=== PATIENT | female | born 1965 | race Caucasian/White ===

== ENCOUNTER 2024-12-10 02:10 | Emergency (ER) | payer MEDICAID, SELFPAY ==
[2024-12-10 02:10] VITALS: BMI 22.6
[2024-12-10 02:39] VITALS: BP 137/75; PULSE 96; RESP 18; TEMP 36.9; O2SAT 99
--- NOTE | 2024-12-10 02:44 | XR_ITS ---
Examination: Wrist, right 3 views Technique: Wrist AP, oblique, lateral 3 views Date and time of exam: December 10, 2024 0249 hrs. Indications: Injury to the wrist today, wrist pain Findings: Old deformity of the radial styloid No acute fracture No dislocation Impression: No acute fracture
[2024-12-10] MEDS: IBUPROFEN TAB 600 MG TABLET PO (02:53)
--- NOTE | 2024-12-10 03:01 | PD.EDHAND ---
Upper Extremity Injury RME/HPI General Chief Complaint: Hand/Wrist Problems Stated Complaint: R WRIST PAIN Time Seen by Provider: 12/10/24 02:13 Arrival date/time: 12/10/24 02:10 59 year old female present to emergency room with c/o of right wrist injury via GLF today. LOCATION: wrist SEVERITY: Symptoms are described as being severe with limitations on activities of daily living QUALITY: Symptoms are described as being dull or achy CONTEXT: GLF on wrist DURATION/TIMING: The symptoms started approximately 1 day ago and have been constant this then. ASSOCIATED SYMPTOMS: The patient is unable to identify any other associated symptoms. MODIFYING FACTORS: The patient is unable to identify any alleviating or aggravating symptoms. PERTINENT ROS: no fevers, no headache, no neck or chest pain, no unexplained nausea or vomiting, no focal neurological deficits REVIEW OF SYSTEMS: See History of Present Illness - with the exception of those mentioned in the history of present illness, all other systems reviewed and reported as negative GENERAL: In general the patient is awake, interactive, in an emergency department gurney. HEAD/EYES/EARS/NOSE/THROAT: normo-cephalic, atraumatic, mucus membranes are moist, anicteric, palpebral conjunctiva is pink, trachea is midline. NEUROLOGICAL: cranio-facial features are symmetric, moves all four extremities equally without obvious limitations or weakness. EXTREMITY: right proximal wrist tenderness, decrease range of motion no tenderness to palpation over the long bones or large joints of the bilateral lower extremities, no joint swelling, no joint erythema, no unilateral leg swelling and no peripheral edema. SKIN: warm, dry, well-perfused, no jaundice, no rash, no telangiectasias or petechia. PSYCH: calm, cooperative, no evidence of psychosis or agitation Related Data Home Medications ?Medication ?Instructions ?Recorded ?Confirmed amlodipine 10 mg tablet 10 mg PO QDAY 01/31/24 01/31/24 ergocalciferol (vitamin D2) 1,250 1,250 mcg PO QWEEK 01/31/24 01/31/24 mcg (50,000 unit) capsule hydroxyzine HCl 50 mg tablet 50 mg PO HS PRN Insomnia 01/31/24 01/31/24 Held on 01/31/24. Instructions: Resume on 02/01/24. lisinopril 40 mg tablet 40 mg PO QDAY 01/31/24 01/31/24 vibegron 75 mg tablet (Gemtesa) 75 mg PO QDAY 01/31/24 01/31/24 Allergies Allergy/AdvReac Type Severity Reaction Status Date / Time No Known Allergies Allergy Verified 12/10/24 02:12 Course Course Course Narrative: Patient with presentation consistent with wrist sprain/pain.? Above radiographs orders without evidence of acute fracture wet read, radiologist will overead in the morning. . Provided colles splint w/ elastic bandage. Symptomatic treatment was discussed.. Patient may also use ibuprofen as needed for pain. Follow up with primary physician or sports medicine clinic if continued pain. Return to ED if pain uncontrolled, neurovascular change, or other concerns. Plan:? ? A splint was fitted/applied and adjusted to the Pt and secured w/ ANNA wrap. Advised Pt to wrap affected area w/ elastic bandage firmly but not tightly until resolution of swelling and to remove if numbness or tingling presents.? Advised Pt on cold application to affected area for thirty min q3-4hr for one to two days and then warm application to affected area for thirty min tid/qid until resolution of Sx.? Advised Pt to elevate hand when lying. Instructed Pt to take OTC acetaminophen or ibuprofen prn as directed. Advised Pt to perform ROM exercises. Instructed Pt to f/up w/ PCP or ETC should Sx worsen or not improve.? Pt verbally expressed understanding and all questions were addressed to Pt's satisfaction. Quality Measures none Orders Category Date Time Status Splint / Immobilizer STAT Care 12/10/24 03:13 Active XR wrist comp RT min 3V Stat Exams 12/10/24 02:44 Taken Ibuprofen Tab [Motrin Tab] Med 12/10/24 02:44 Discontinued 600 mg PO X1 ONE Vital Signs Vital signs: Vital Signs Temperature 98.5 F 12/10/24 02:39 Pulse Rate 96 12/10/24 02:39 Respiratory Rate 18 12/10/24 02:39 Blood Pressure 137/75 H 12/10/24 02:39 Pulse Oximetry (%) 99 12/10/24 02:39 Oxygen Delivery Method Room Air 12/10/24 02:39 Extremity Injury Patient data External records reviewed:: [facility] previous records Clinical information provided by:: patient Social determinants that could affect healthcare access:: none Patient has the following chronic illnesses:: as stated in chart How is presenting disease/condition affected by chronic disease/condition?: no chronic disease Evaluation data The following diagnostics were reviewed and interpreted by me:: radiology exam(s) Lab and/or radiology exams considered but not ordered:: n/a Interpretation Summary: xray: no acute fx , wet read, radiologist will overead in the morning Medications / Prescriptions Medications or Prescriptions considered but not ordered:: n/a Medication administrations:: Medication Administration History Discontinued Medications Ibuprofen (Ibuprofen Tab 600 Mg Tablet) 600 mg PO X1 ONE Stop: 12/10/24 02:45 Last Admin: 12/10/24 02:53 Dose: 600 mg Documented By: CVL as stated above Consultations Consultation(s) initiated? (list below): No Diagnosis Upper Extremity Injury Differential Diagnosis: sprain and strain of wrist and fracture of wrist Most likely diagnosis given after review of the tests above:: wrist sprain Admission Indicated Admission indicated?: not indicated Admission Request Was there a request for admission?: No Disposition Plan Disposition Plan: Discharge Discharge Attestation Discharge Attestation: The patient and all family members were given an opportunity to ask questions and understood the discharge instructions. Discharge instructions specifically effects, indications for sooner follow up or return to the emergency department, and the expected course of current diagnosis. Patient condition: Stable Discharge Plan Plan Patient Disposition: HOME (Self Care) Health Concerns: Follow with PMD as directed Take tylenol or motrin as need Return to ED if sx worsen Prescriptions/Referrals Prescriptions/Med Rec: No Action hydroxyzine HCl 50 mg tablet 50 mg PO HS PRN (Reason: Insomnia) Patient Comments: TAKE ONE TABLET BY MOUTH AT BEDTIME NEEDED amlodipine 10 mg tablet 10 mg PO QDAY Patient Comments: TAKE ONE TABLET BY MOUTH EVERY DAY FOR BLOOD PRESSURE ergocalciferol (vitamin D2) 1,250 mcg (50,000 unit) capsule 1,250 mcg PO QWEEK Patient Comments: TAKE ONE CAPSULE BY MOUTH EVERY WEEK VITAMIN lisinopril 40 mg tablet 40 mg PO QDAY Patient Comments: TAKE ONE TABLET BY MOUTH EVERY DAY FOR BLOOD PRESSURE Gemtesa 75 mg tablet 75 mg PO QDAY Patient Comments: TAKE ONE TABLET BY MOUTH EVERY DAY FOR OVERACTIVE BLADDER Problem List Clinical Impression: Right wrist sprain Patient/Caregiver Discharge Instructions Education Materials: ED Wrist Sprain Print Language: Luxembourgish Stand Alone Forms: [facility] Award Info., Patient Portal Info Letter
[2024-12-10 03:15] VITALS: RESP 18
== END 2024-12-10 03:15 | disposition home or self-care (01) ==
LOC: SERX 03:14
PROVIDERS: Emergency Provider Emergency Medicine; PCP Nurse Practitioner Family
DX: S63.501A Unspecified sprain of right wrist, initial encounter (principal); W19.XXXA Unspecified fall, initial encounter
CPT/HCPCS: 73110; 99283; A9270

== ENCOUNTER 2025-02-21 19:37 | Emergency (ER) | payer MEDICAID, SELFPAY ==
[2025-02-21 19:38] VITALS: BMI 22.6
[2025-02-21 19:55] VITALS: BP 122/71; PULSE 111; RESP 20; TEMP 37.5; O2SAT 95
--- NOTE | 2025-02-21 20:00 | PD.EDSKIN ---
ED Skin Abcess FB-RME/HPI General Chief complaint: Skin/Abscess/Foreign Body Stated complaint: RASH IN PRIVATE AREA Time Seen by Provider: 02/21/25 19:40 Arrival date/time: 02/21/25 19:37 This is a case of 60-year-old female who came in in the emergency room due to vaginal pain redness and surrounding for 1 week worsening of the symptoms this patient decided to start consult here in the emergency Related Data Home Medications ?Medication ?Instructions ?Recorded ?Confirmed amlodipine 10 mg tablet 10 mg PO QDAY 01/31/24 01/31/24 ergocalciferol (vitamin D2) 1,250 1,250 mcg PO QWEEK 01/31/24 01/31/24 mcg (50,000 unit) capsule hydroxyzine HCl 50 mg tablet 50 mg PO HS PRN Insomnia 01/31/24 01/31/24 Held on 01/31/24. Instructions: Resume on 02/01/24. lisinopril 40 mg tablet 40 mg PO QDAY 01/31/24 01/31/24 vibegron 75 mg tablet (Gemtesa) 75 mg PO QDAY 01/31/24 01/31/24 Allergies Allergy/AdvReac Type Severity Reaction Status Date / Time No Known Allergies Allergy Verified 12/10/24 02:12 Course Orders Category Date Time Status CT Screening NOW Care 02/21/25 20:[address] abdomen pelvis w con Stat Exams 02/21/25 19:59 Ordered CBC Stat Lab 02/21/25 19:59 Ordered CMP [Comprehensive Metabolic Panel] Stat Lab 02/21/25 19:59 Ordered HCG,Qualitative Serum Stat Lab 02/21/25 19:59 Ordered Vital Signs Vital signs: Vital Signs Temperature 99.5 F 02/21/25 19:55 Pulse Rate 111 H 02/21/25 19:55 Respiratory Rate 20 02/21/25 19:55 Blood Pressure 122/71 02/21/25 19:55 Pulse Oximetry (%) 95 02/21/25 19:55 Oxygen Delivery Method Room Air 02/21/25 19:55 Discharge Plan Prescriptions/Referrals Prescriptions/Med Rec: No Action hydroxyzine HCl 50 mg tablet 50 mg PO HS PRN (Reason: Insomnia) Patient Comments: TAKE ONE TABLET BY MOUTH AT BEDTIME NEEDED amlodipine 10 mg tablet 10 mg PO QDAY Patient Comments: TAKE ONE TABLET BY MOUTH EVERY DAY FOR BLOOD PRESSURE ergocalciferol (vitamin D2) 1,250 mcg (50,000 unit) capsule 1,250 mcg PO QWEEK Patient Comments: TAKE ONE CAPSULE BY MOUTH EVERY WEEK VITAMIN lisinopril 40 mg tablet 40 mg PO QDAY Patient Comments: TAKE ONE TABLET BY MOUTH EVERY DAY FOR BLOOD PRESSURE Gemtesa 75 mg tablet 75 mg PO QDAY Patient Comments: TAKE ONE TABLET BY MOUTH EVERY DAY FOR OVERACTIVE BLADDER Patient/Caregiver Discharge Instructions Print Language: Mohawk
--- NOTE | 2025-02-21 20:01 | PD.EDRME ---
Rapid Medical Screening Exam RME Arrival date/time: 02/21/25 19:37 This is a case of a 60-year-old female who came in emergency room due to abdominal pain vaginal pain redness swelling and discharge suggestive of abscess on the vagina worsening of the symptoms this patient decided to start consult here in the emergency room Chief Complaint: Skin/Abscess/Foreign Body Time Seen by Provider: 02/21/25 19:40 Vital signs: Vital Signs Temperature 99.5 F 02/21/25 19:55 Pulse Rate 111 H 02/21/25 19:55 Respiratory Rate 20 02/21/25 19:55 Blood Pressure 122/71 02/21/25 19:55 Pulse Oximetry (%) 95 02/21/25 19:55 Oxygen Delivery Method Room Air 02/21/25 19:55
--- NOTE | 2025-02-21 20:24 | PD.EDFMALE ---
ED Female Urogenital RME/HPI General Chief complaint: Skin/Abscess/Foreign Body Stated complaint: RASH IN PRIVATE AREA Time Seen by Provider: 02/21/25 19:40 Arrival date/time: 02/21/25 19:37 RME / HPI RME / HPI Narrative: 02/21/25 19:37 This is a case of a 60-year-old female who came in emergency room due to abdominal pain vaginal pain redness swelling and discharge suggestive of abscess on the vagina worsening of the symptoms this patient decided to start consult here in the emergency room This section includes all my notes and documentations, including HPI, PE, and ED course. Jeffery Jensen MD HPI: 60 y/o female with a couple month history of worsening swelling and redness and pain of the entire external genitalia. Had vaginal squamous cell carcinoma about 8 years ago. Complete recovery with a month of chemotherapy and radiation. No surgery needed. Has been working with Dr. Khadijah Conner ([facility]) in [place] in the past couple of months. Biopsy showed lichen sclerosus according to the patient. Currently, patient can't even sit due to severe pain. And has trouble urinating. No fever or chills. No other complaints. ROS: All negative except as documented in HPI. Physical Exam: General: Alert and oriented. In obvious pain. Eyes: Conjunctivae and lids clear. ENT: No nasal congestion. Neck: Supple. Heart: RRR. Lungs: No respiratory distress. Good air movement. No rhonchi, wheezing, rales. Abdomen: Soft and nontender. Normal bowel sounds. No distension. No rebound or guarding. Skin: Warm and dry. Neuro: Alert and oriented X 3. Genitalia: Entire external genitalia is severely edematous and erythematous and tenderness. Clitoris is the size of a grape. I reviewed all diagnostic test results: My interpretation of the chest x-ray is infiltrates. My review of the Chest/Abdomen/Pelvis CT report is: Soft nodular opacities in the upper lung zones most consistent with pneumonia. Edema perianal extending into the perineum including labia, most consistent with cellulitis. Blood tests remarkable for WBC 12.2, CRP 19.3. UA showed positive leukocyte Estrace, 17 RBC, 99 WBC, and 1+ bacteria. At this point, diagnoses include: Inflammatory disease of vagina and vulva, Urinary retention, Cellulitis of female genitalia, UTI, and pneumonia. Treatment here included: Topical Emla cream, IV fluid, Toradol, morphine, Solu-Medrol, Rocephin, and vancomycin. 0026: I discussed the case with our WEBSITE PROGRAMMER, Dr. Giordano. About the presentation and exam and diagnostics and treatments here. And possible need of further care in the hospital. Recommended transfer to another facility with [facility] service. 0246: I discussed the case with Dr. Huertas ([facility]). About the presentation and exam and diagnostics and treatments here. And need of further care there. Accepted the patient. Jeffery Jensen MD Related Data Home Medications ?Medication ?Instructions ?Recorded ?Confirmed amlodipine 10 mg tablet 10 mg PO QDAY 01/31/24 01/31/24 ergocalciferol (vitamin D2) 1,250 1,250 mcg PO QWEEK 01/31/24 01/31/24 mcg (50,000 unit) capsule hydroxyzine HCl 50 mg tablet 50 mg PO HS PRN Insomnia 01/31/24 01/31/24 Held on 01/31/24. Instructions: Resume on 02/01/24. lisinopril 40 mg tablet 40 mg PO QDAY 01/31/24 01/31/24 vibegron 75 mg tablet (Gemtesa) 75 mg PO QDAY 01/31/24 01/31/24 Allergies Allergy/AdvReac Type Severity Reaction Status Date / Time No Known Allergies Allergy Verified 12/10/24 02:12 Review of Systems Review of Systems Systems Reviewed: All systems reviewed, normal except as documented Past Medical History Past Medical History CARDIAC: Positive Hypertension MUSCULOSKELETAL: Positive Rheumatoid Arthritis PSYCHO/SOCIAL: Positive Psychiatric Problems, Recreational Drug Use, Depression, Anxiety and Post Traumatic Stress Disorder (son 2013 from epilepsy) OTHER HISTORY: Positive Chemotherapy, Radiation Therapy and Cancer (squamous cell carcinoma of vagina) Family History FAMILY HISTORY: Positive Family Psychiatric Problems (schizophrenic, personality disorder, developmenal disorder, mental health), Family Cardiac Disorders (htn), Family Gastrointestinal Problems (colon cancer) and Family Cancer (colon cancer) Surgical History SURGICAL: Positive Tubal Ligation Social History SMOKING STATUS: Current some day smoker SECOND HAND EXPOSURE: Yes (mother) ED Exam Narrative Physical exam: Refer to HPI Course Course Course Narrative: CXR is ordered for determining the etiology of shortness of breath. Quality Measures none Orders Category Date Time Status Bladder Scan NEEDED Care 02/22/25 03:01 Active COVID-19 Screening Questionnaire NOW Care 02/22/25 02:[address] Screening NOW Care 02/21/25 20:28 Active Decision to Admit X1 Care 02/22/25 02:49 Active [place] to [place] Routine Care 02/21/25 20:26 Ordered Saline [Insert IV] NOW Care 02/21/25 20:[address] chest abdomen pelvis w Stat Exams 02/21/25 20:28 Completed XR chest 1V portable Stat Exams 02/21/25 20:28 Completed Bilirubin,Direct Stat Lab 02/21/25 20:33 Completed Blood Culture (Lab) Stat Lab 02/21/25 20:41 Received CBC Stat Lab 02/21/25 20:33 Completed CMP [Comprehensive Metabolic Panel] Stat Lab 02/21/25 20:33 Completed CRP [C-Reactive Protein] Stat Lab 02/21/25 20:33 Completed ESR [Sed Rate (ESR)] Stat Lab 02/21/25 20:33 Completed Lactate (Lactic Acid) Stat Lab 02/21/25 20:33 Completed Magnesium Stat Lab 02/21/25 20:33 Completed PT [Prothrombin Time with INR] Stat Lab 02/21/25 20:33 Completed PTT [Partial Thromboplastin Time] Stat Lab 02/21/25 20:33 Completed Procalcitonin Stat Lab 02/21/25 20:33 Completed UA, C/S IF [Urinalysis, C/S if Indicated] Stat Lab 02/21/25 23:45 Completed Urine Culture Stat Lab 02/21/25 23:45 Received Ketorolac Inj [Toradol Inj] Med 02/21/25 20:26 Discontinued 30 mg IVP X1 ONE Lidocaine/Prilocaine Cr 5Gm [Emla Cr] Med 02/21/25 20:35 Discontinued See Dose Instructions TOP X1 ONE Lidocaine/Prilocaine Cr 5Gm [Emla Cr] Med 02/21/25 20:35 Discontinued See Dose Instructions TOP X1 ONE Lidocaine/Prilocaine Cr 5Gm [Emla Cr] Med 02/21/25 20:36 Discontinued See Dose Instructions TOP X1 ONE Lidocaine/Prilocaine Cr 5Gm [Emla Cr] Med 02/21/25 20:36 Discontinued See Dose Instructions TOP X1 ONE MethylPREDNISolone.* [SoluMEDROL Inj] Med 02/21/25 20:26 Discontinued 125 mg IVP X1 ONE Morphine Inj Med 02/21/25 20:26 Discontinued 4 mg IVP X1 ONE Sodium Chloride 0.9% 1000 ml [Ns] 1,000 ml Med 02/21/25 20:26 Discontinued IV 999 mls/hr Vancomycin Inj 2,000 mg Med 02/21/25 21:34 Discontinued Sodium Chloride 0.9% 500 ml [Ns] 500 ml IV X1 cefTRIAXone/D5w 1gm IV premix [Rocephin/D5w 1gm IV Med 02/21/25 21:34 Discontinued premix] 1 gm in 50 ml IV X1 Vital Signs Vital signs: Vital Signs Temperature 99.5 F 02/21/25 19:55 Pulse Rate 111 H 02/21/25 19:55 Respiratory Rate 20 02/21/25 19:55 Blood Pressure 122/71 02/21/25 19:55 Pulse Oximetry (%) 95 02/21/25 19:55 Oxygen Delivery Method Room Air 02/21/25 19:55 Urogenital - Female MDM Narrative MDM Narrative:: Scribe Attestation: IEsepranza, am scribing for and in the presence of Dr. Jensen. Provider Notation: Although this document has been carefully reviewed, there may still be some phonetic and other typographical errors.? These errors are purely grammatical due to imperfections in the software program and should not be construed in any way to? compromise the substance of the patient's medical care during this visit. 60 y/o female with a couple month history of worsening swelling and redness and pain of the entire external genitalia. Had vaginal squamous cell carcinoma about 8 years ago. Complete recovery with a month of chemotherapy and radiation. No surgery needed. Has been working with Dr. Khadijah Conner ([facility]) in [place] in the past couple of months. Biopsy showed lichen sclerosus according to the patient. Currently, patient can't even sit due to severe pain. And has trouble urinating. No fever or chills. No other complaints. Patient data External records reviewed:: [facility] previous records (Reviewed prior ED records from 12/10/24. Patient was seen for Right wrist sprain.) Clinical information provided by:: patient Social determinants that could affect healthcare access:: substance use Patient has the following chronic illnesses:: Hypertension, Rheumatoid Arthritis, Recreational Drug Use, Depression, Anxiety, Post Traumatic Stress Disorder, Squamous cell carcinoma of the vagina How is presenting disease/condition affected by chronic disease/condition?: exacerbated by Evaluation data The following diagnostics were reviewed and interpreted by me:: lab results and radiology exam(s) Lab and/or radiology exams considered but not ordered:: None Interpretation Summary: I reviewed all diagnostic test results: My interpretation of the chest x-ray is infiltrates. My review of the Chest/Abdomen/Pelvis CT report is: Soft nodular opacities in the upper lung zones most consistent with pneumonia. Edema perianal extending into the perineum including labia, most consistent with cellulitis. Blood tests remarkable for WBC 12.2, CRP 19.3. UA showed positive leukocyte Estrace, 17 RBC, 99 WBC, and 1+ bacteria. Medications / Prescriptions Medications or Prescriptions considered but not ordered:: None Medication administrations:: Medication Administration History Discontinued Medications Sodium Chloride (Ns) 1,000 mls @ 999 mls/hr IV .Q1H1M ONE Stop: 02/21/25 21:26 Last Infusion: 02/21/25 22:45 Dose: Infused Documented By: Admin: 02/21/25 20:49 Dose: 999 mls/hr Documented By: ELVA Ceftriaxone Sodium/Dextrose (Rocephin/D5w 1gm Iv Premix) 1 gm in 50 mls @ 100 mls/hr IV X1 ONE Stop: 02/21/25 22:03 Last Infusion: 02/21/25 22:45 Dose: Infused Documented By: Admin: 02/21/25 21:46 Dose: 100 mls/hr Documented By: ELVA Vancomycin HCl 2,000 mg/ (Sodium Chloride) 500 mls @ 150 mls/hr IV X1 ONE Stop: 02/22/25 00:53 Last Infusion: 02/22/25 02:27 Dose: Infused Documented By: Admin: 02/21/25 22:53 Dose: 150 mls/hr Documented By: ELVA Ketorolac Tromethamine (Ketorolac Inj 30 Mg/Ml Vial) 30 mg IVP X1 ONE Stop: 02/21/25 20:27 Last Admin: 02/21/25 20:50 Dose: 30 mg Documented By: ELVA Lidocaine/Prilocaine (Lidocaine/Prilocaine Cr 5gm 5 Gm Tube) 0 gm TOP X1 ONE Stop: 02/21/25 20:36 Last Admin: 02/21/25 20:51 Dose: 5 gm Documented By: ELVA Lidocaine/Prilocaine (Lidocaine/Prilocaine Cr 5gm 5 Gm Tube) 0 gm TOP X1 ONE Stop: 02/21/25 20:36 Last Admin: 02/22/25 03:39 Dose: Not Given Documented By: ANUJ Non-Admin Reason: Change of Condition Lidocaine/Prilocaine (Lidocaine/Prilocaine Cr 5gm 5 Gm Tube) 0 gm TOP X1 ONE Stop: 02/21/25 20:37 Last Admin: 02/22/25 03:39 Dose: Not Given Documented By: ANUJ Non-Admin Reason: Change of Condition Lidocaine/Prilocaine (Lidocaine/Prilocaine Cr 5gm 5 Gm Tube) 0 gm TOP X1 ONE Stop: 02/21/25 20:37 Last Admin: 02/22/25 03:39 Dose: Not Given Documented By: AC Non-Admin Reason: Change of Condition Methylprednisolone Sodium Succinate (Methylprednisolone Sod Succ 62.5 Mg/Ml 2ml Vial) 125 mg IVP X1 ONE Stop: 02/21/25 20:27 Last Admin: 02/21/25 20:51 Dose: 125 mg Documented By: ELVA Morphine Sulfate (Morphine Sulf Inj 10 Mg/Ml Vial) 4 mg IVP X1 ONE Stop: 02/21/25 20:27 Last Admin: 02/21/25 20:51 Dose: 4 mg Documented By: ELVA Treatment here included: Topical Emla cream, IV fluid, Toradol, morphine, Solu-Medrol, Rocephin, and vancomycin. Consultations Consultation(s) initiated? (list below): Yes Consultation #1 (Physician, Specialty, Details): 0026: I discussed the case with our WEBSITE PROGRAMMER, Dr. Giordano. About the presentation and exam and diagnostics and treatments here. And possible need of further care in the hospital. Recommended transfer to another facility with [facility] Oncology service. Time: 00:26 Consultation #3 (Physician, Specialty, Details): 0246: I discussed the case with Dr. Huertas ([facility]). About the presentation and exam and diagnostics and treatments here. And need of further care there. Accepted the patient. Time: 02:46 Diagnosis Urogenital Female Differential Diagnosis: urinary tract infection, bacterial vaginosis, trichomoniasis, cervicitis, ovarian cyst, vaginitis, ruptured ovarian cyst, cyst of Bartholin's gland, cystitis, dysmenorrhea and other (Vaginal cancer, cellulitis, sepsis) Most likely diagnosis given after review of the tests above:: 0246: I discussed the case with Dr. Huertas ([facility]). About the presentation and exam and diagnostics and treatments here. And need of further care there. Accepted the patient. Admission Indicated Admission indicated?: not indicated Explain why admission is indicated or not indicated:: I discussed the case with our WEBSITE PROGRAMMER, Dr. Giordano. About the presentation and exam and diagnostics and treatments here. And possible need of further care in the hospital. Recommended transfer to another facility with [facility] Oncology service. Admission Request Was there a request for admission?: No Disposition Plan Disposition Plan: Transfer Critical Care Time Critical Care Time Critical Care Time: Yes Total Critical Care Time (min.): 36 Attestation: Due to a high probability of clinically significant, life threatening deterioration, the patient required my highest level of preparedness to intervene emergently and I personally spent this critical care time directly and personally managing the patient. This critical care time included obtaining a history; examining the patient; ordering and review of studies; arranging urgent treatment with development of a management plan; evaluation of patient's response to treatment; frequent reassessment; and discussions with family and other providers. It was exclusive of separately billable procedures and treating other patients and teaching time. Jeffery Jensen MD Discharge Plan Plan Patient Disposition: [facility] Being Transferred to: [facility] Service Needed for Transfer: WEBSITE PROGRAMMER Discharge Disposition comment: [facility] Patient condition on transfer: Stable Prescriptions/Referrals Prescriptions/Med Rec: No Action hydroxyzine HCl 50 mg tablet 50 mg PO HS PRN (Reason: Insomnia) Patient Comments: TAKE ONE TABLET BY MOUTH AT BEDTIME NEEDED amlodipine 10 mg tablet 10 mg PO QDAY Patient Comments: TAKE ONE TABLET BY MOUTH EVERY DAY FOR BLOOD PRESSURE ergocalciferol (vitamin D2) 1,250 mcg (50,000 unit) capsule 1,250 mcg PO QWEEK Patient Comments: TAKE ONE CAPSULE BY MOUTH EVERY WEEK VITAMIN lisinopril 40 mg tablet 40 mg PO QDAY Patient Comments: TAKE ONE TABLET BY MOUTH EVERY DAY FOR BLOOD PRESSURE Gemtesa 75 mg tablet 75 mg PO QDAY Patient Comments: TAKE ONE TABLET BY MOUTH EVERY DAY FOR OVERACTIVE BLADDER Referrals: Ritika Mcmanus ADOPTION AGENT [Primary Care Provider] - In 1 week Problem List Clinical Impression: Inflammatory disease of vagina and vulva, Urinary retention, Cellulitis of female genitalia, Pneumonia, UTI (urinary tract infection) Patient/Caregiver Discharge Instructions Print Language: Belarusian Stand Alone Forms: [facility] Award Info., Patient Portal Info Letter
--- NOTE | 2025-02-21 20:28 | XR_ITS ---
Examination: AP chest single view TECHNIQUE: AP portable upright chest single view Date and time: February 21, 20254 hours INDICATIONS: Cough and chest pain beginning 3 days ago. FINDINGS: Suspicious for minimal infiltrate in the right upper lobe Normal heart size No pulmonary edema Moderate osteopenia IMPRESSION: Suspicious for early pneumonia right upper lobe
--- NOTE | 2025-02-21 20:28 | XR_ITS ---
Examination: CT chest with intravenous contrast CT abdomen with intravenous contrast CT pelvis with intravenous contrast 2-D coronal and sagittal reconstructions Time of exam: February 21, 2025 1116 hours Comparison August 13, 2008 INDICATIONS: Chest and lower abdominal pain today CTDI: vol (mGy) : 10 DLP: (mGycm): 737 Technique: Multiple axial images of the chest, abdomen and pelvis with intravenous contrast, 3.0 mm slice thickness. Images obtained post intravenous injection Isovue 370 60 cc. 2-D sagittal and coronal reconstructions. Low dose protocols were performed. One or more of the following dose reduction techniques were used; automated exposure control, adjustment of the mA and/or KV according to patient size, use of iterative reconstruction technique. Findings: Thoracic aorta pulmonary arteries intact, no pulmonary artery emboli No paratracheal tracheobronchial or bronchopulmonary adenopathy Soft nodular densities in both lungs most consistent with pneumonia No liver lesions, mild splenomegaly Distended gallbladder No pelvic mass Urinary bladder intact Edema in the perineum including labia, axial image 327 and perianal Fat-containing adrenal masses on the left side 23 mm on the right side 12 mm No pancreatic mass No renal or ureteral calculi, no hydronephrosis Normal appendix No bowel obstruction Colonic diverticulosis, no diverticulitis IMPRESSION: Soft nodular opacities in the upper lung zones most consistent with pneumonia, follow-up chest imaging recommended to document clearing Edema perianal extending into the perineum including labia, most consistent with cellulitis, clinical correlation advised and follow-up recommended
[2025-02-21] MEDS: SODIUM CHLORIDE 0.9% 1000 ML 1,000 ML 999 ML IV (20:49)
[2025-02-21] MEDS: KETOROLAC INJ 30 MG/ML VIAL IVP (20:50)
[2025-02-21] MEDS: MethylPREDNISolone SOD SUCC 62.5 MG/ML 2ML VIAL 125 MG IVP (20:51)
[2025-02-21] MEDS: LIDOCAINE/PRILOCAINE CR 5GM 5 GM TUBE TOP (20:51)
[2025-02-21] MEDS: MORPHINE SULF INJ 10 MG/ML VIAL 4 MG IVP (20:51)
[2025-02-21 21:00] VITALS: BP 136/85; PULSE 100; RESP 18; TEMP 36.7; O2SAT 95
[2025-02-21 21:00] LABS: Lactate (Lactic Acid) 1.0 mMol/L (0.4-2.0)
[2025-02-21 21:14] LABS: Basophils # (Auto) 0.0 Thou/mm3 (0.0-0.2); Basophils % (Auto) 0 % (0-2.5); Eosinophils # (Auto) 0.2 Thou/mm3 (0.0-0.5); Eosinophils % (Auto) 1 % (0-10); Hematocrit 33.8 % (36.0-46.0); Hemoglobin 11.8 g/dL (12.0-16.0); Immature Granulocytes Auto 0.08 Thou/mm3 (0.00-0.00); Lymphocytes # (Auto) 1.3 Thou/mm3 (1.0-4.8); Lymphocytes % (Auto) 11 % (10-50); Mean Corpuscular HGB Conc 34.9 g/dl (31.0-37.0); Mean Corpuscular Hemoglobin 31.1 pg (25.0-35.0); Mean Corpuscular Volume 89 fL (80-100); Monocytes # (Auto) 0.6 Thou/mm3 (0.0-0.8); Monocytes % (Auto) 5 % (0-12); Neutrophils # (Auto) 10.1 Thou/mm3 (1.8-7.7); Neutrophils % (Auto) 82 % (37-80); Nucleated Red Blood Cell # 0.00 Thou/mm3 (0.00-0.00); Nucleated Red Blood Cell % 0 /100 WBC (0); Platelet Count 335 Thou/mm3 (140-440); RDW Standard Deviation 42.9 fL (36.4-46.3); Red Blood Count 3.80 Miln/mm3 (4.00-5.20); White Blood Count 12.2 Thou/mm3 (3.6-11.0)
[2025-02-21 21:29] LABS: Sed Rate (ESR) 62 mm/hr (0-30)
[2025-02-21 21:35] LABS: INR 1.0 (0.9-1.3); Partial Thromboplastin Time 34.3 Seconds (22.0-36.0); Prothrombin Time 11.4 Seconds (9.0-12.2)
[2025-02-21] MEDS: cefTRIAXone/D5w 1gm IV premix 1 GM/50 ML BAG IV (21:46)
[2025-02-21 21:53] LABS: Alanine Aminotransferase 16 U/L (10-49); Albumin, Serum 4.0 gm/dL (3.5-5.0); Albumin/Globulin Ratio 1.1 (1.2-2.2); Alkaline Phosphatase 99 U/L (46-116); Anion Gap 8 (7-16); Aspartate Amino Transferase 19 U/L (0-34); BUN/Creatinine Ratio 23 Ratio (12-20); Bilirubin,Direct 0.3 mg/dL (0.0-0.3); Bilirubin,Total 0.6 mg/dL (0.3-1.2); Blood Urea Nitrogen 27 mg/dL (9-23); Calcium 9.2 mg/dL (8.3-10.6); Calcium (Corrected) 9.2 mg/dL (8.5-10.1); Carbon Dioxide 26.0 mMol/L (20.0-31.0); Chloride 107 mMol/L (98-107); Creatinine (Component) 1.2 mg/dL (0.6-1.3); Estimated Creatinine Clearance 47.8 mL/min (>60); Globulin 3.7 gm/dL (2.3-3.5); Glucose 151 mg/dL (74-106); Magnesium 2.1 mg/dL (1.6-2.6); Osmolality,Calculated 289 (275-295); Potassium 3.9 mMol/L (3.4-5.1); Procalcitonin 0.19 ng/ml (0.0-0.49); Sodium 141 mMol/L (136-145); Total Protein 7.7 gm/dL (5.7-8.2); eGFR 52 See Note
[2025-02-21] MEDS: Vancomycin Inj 2,000 MG in SODIUM CHLORIDE 0.9% 500 ML 500 ML 150 MG IV (22:53)
[2025-02-21 23:00] VITALS: BP 129/71; PULSE 90; RESP 19; TEMP 36.7; O2SAT 95
[2025-02-21 23:49] LABS: Collection Type, Urine Clean Catch
[2025-02-21 23:54] LABS: C-Reactive Protein 19.3 mg/dL (0.0-0.9)
[2025-02-21 23:56] LABS: Bacteria,Urine 1+; Bilirubin,Urine Negative (Negative); Blood,Urine Trace (Negative); Clarity,Urine Turbid (Clear/Hazy); Color,Urine Yellow (Lt Yel-Yel); Glucose, Urine Negative (Negative); Ketones,Urine Negative (Negative); Leukocyte Esterase,Urine Positive (Negative); Nitrite,Urine Negative (Negative); PH,Urine 6.0 (5.0-7.0); Protein,Urine Trace (Neg - Trace); RBC,Urine 17 /hpf (0-3); Specific Gravity,Urine 1.025 (1.001-1.035); Squamous Epithelial Cell,Urine 3 /hpf (0-5); Urobilinogen,Urine 4.0 mg/dL (0.0-1.0); WBC,Urine 99 /hpf (0-5)
[2025-02-21 23:57] LABS: Culture Indicated,Urine Yes
[2025-02-22 02:03] VITALS: BP 125/69; PULSE 84; RESP 15; O2SAT 96
--- NOTE | 2025-02-22 04:23 | PC.NURSE ---
REPORT GIVEN TO TERENCE MCHUGH AND ED HORNE FROM [facility]
== END 2025-02-22 04:31 | disposition short-term general hospital (02) ==
PROVIDERS: Emergency Provider Emergency Medicine; PCP Nurse Practitioner Family
DX: N76.4 Abscess of vulva (principal); N76.0 Acute vaginitis; J18.9 Pneumonia, unspecified organism; N39.0 Urinary tract infection, site not specified; F17.210 Nicotine dependence, cigarettes, uncomplicated; Z75.1 Person awaiting admission to adequate facility elsewhere
CPT/HCPCS: 36415; 71045; 71260; 74177; 80053; 81001; 82248; 83605; 83690; 83735; 84145; 84703; 85025; 85610; 85652; 85730; 86140; 87040; 87086; 96361; 96365; 96366; 96367; 96375; 99291; A4314; A4649; J0696; J1885; J2270; J2919; J3370; J7030; J7999; Q9967